=== PATIENT | female | born 1995 | race Two or more races ===

== ENCOUNTER 2020-02-05 00:01 | Emergency (ER) | payer SELFPAY ==
[~2020-02-05] VITALS: Ht 160 cm; Wt 57.0 kg
[2020-02-05 00:09] VITALS: BP 114/90
[2020-02-05] MEDS ORDERED: KETOROLAC 30MG/ML VIAL IV STA (00:39)
[2020-02-05] MEDS ORDERED: METOCLOPRAMIDE HCL 10MG/2ML VIAL IV STA (00:39)
[2020-02-05] MEDS ORDERED: LORAZEPAM 2MG/ML CPJ IV STA (00:39)
== END 2020-02-05 01:00 | disposition left against medical advice (07) ==
LOC: ER 00:01
DX: F41.9 Anxiety disorder, unspecified (principal); G44.89 Other headache syndrome; Z88.6 Allergy status to analgesic agent
CPT/HCPCS: 99283